=== PATIENT | male | born 1970 | race African-American/Black ===

== ENCOUNTER 2018-09-09 07:46 | Observation (INO) ==
[2018-09-09] MEDS ORDERED: ASPIRIN PO ONE (08:16)
[2018-09-09] MEDS ORDERED: NITROGLYCERIN TOP ONE (08:17)
[2018-09-09] MEDS ORDERED: MORPHINE IV ONE ×2 (08:17→09:58)
[2018-09-09] MEDS ORDERED: ZOFRAN IV ONE ×2 (08:17→09:59)
--- NOTE | 2018-09-09 08:23 | PROVIDER DOCUMENTATION ---
HPI-Chest Pain - General Chief Complaint: Chest Pain Stated Complaint: CP,EDEMA Time Seen by Provider: 09/09/18 08:08 Source: patient, family () Allergies/Adverse Reactions: Patient Allergies Allergy/AdvReac Type Severity Reaction Status Date / Time No Known Allergies Allergy Verified 07/29/18 07:45 Home Medications: Home Medication List Medication Instructions Recorded Confirmed Last Taken Type Metoprolol [Lopressor] 25 mg PO DAILY 11/30/16 09/09/18 05/08/18 History Omeprazole 40 mg PO DAILY 12/13/17 09/09/18 05/08/18 History Atorvastatin Calcium [Lipitor] 40 mg PO DAILY #90 tab 01/03/18 09/09/18 05/08/18 Rx Furosemide [Lasix] 20 mg PO DAILY 05/02/18 09/09/18 05/08/18 History Amlodipine [Norvasc] 10 mg PO DAILY #90 tab 05/03/18 09/09/18 05/08/18 Rx Losartan [Cozaar] 50 mg PO BID #60 tab 05/03/18 09/09/18 05/09/18 06:00 Rx Ciprofloxacin HCl [Cipro] 500 mg PO BID #10 tab 05/10/18 09/09/18 Unknown Rx Ondansetron HCl [Zofran] 4 mg PO Q4H PRN PRN #20 tab 05/10/18 09/09/18 Unknown Rx - History of Present Illness-CP Nature of Presenting Problem: Patient brought by with complaint of CP, midsternal, radiating to left scapular area with SOB and diaphoresis. CP began right after having a cup of coffee this morning. IT has been intermittent and rated as moderate to severe. States felt like "achy" type of pain. Never had this pain before. Has recently seen Drs. Nunes and Kat for proteinuria and recently started on a new medicine for his kidneys, can't remember the name, but states it starts with a "n". Sees Dr. Ochoa from cardiology. Has had two prior heart caths, that were "ok" and has a loop recorder implanted 3 years ago. Location: reports: substernal Chest Pain Radiation: reports: back (left scapula) Quality of Pain: reports: aching Severity in ED: moderate Onset/Duration: 1/2 hour ago Timing: still present, intermittent, changing over time Context/Activities at Onset: reports: light activity Modifying Factors: improves with: nothing (seems to help or make it worse) Associated Symptoms: reports: diaphoresis, shortness of breath. denies: nausea Nitro Today/Relief: no nitro taken today Aspirin Treatment Today: no aspirin today (takes blood thinners) Prior Chest Pain/Cardiac Workup: reports: non-cardiac, cardiac cath, stress test , thallium scan Similar Symptoms Previously?: No Recently Seen Here or By Another Healthcare Provider: Yes (Rubia) Review of Systems - Adult - REVIEW OF SYSTEMS - ADULT Constitutional: reports: see HPI, weight gain Eyes: reports: no symptoms reported Ears, Nose, Mouth & Throat: reports: no symptoms reported Cardiovascular: reports: see HPI, chest pain, edema, other (leg swelling). denies: irregular heart rate, orthopnea, palpitations Respiratory: reports: no symptoms reported Gastrointestinal: reports: no symptoms reported Genitourinary: reports: no symptoms reported Musculoskeletal: reports: no symptoms reported Integumentary: reports: no symptoms reported Neurological: reports: no symptoms reported Psychiatric: reports: no symptoms reported Endocrine: reports: no symptoms reported Hematologic/Lymphatic: reports: no symptoms reported Allergic/Immunologic: reports: no symptoms reported All Other Systems: Reviewed and Negative Past History - Adult - PAST MEDICAL HISTORY-ADULT Review of Records: reports: Old Records Reviewed, Nursing Assessment Review, Medications Reviewed, Social history reviewed & non-contributory. Major Childhood Illnesses: reports: denies history Cardiovascular: reports: HTN, hyperlipidemia, [place] (due to cocaine use . A recent angiogram was normal) Respiratory: reports: denies history Gastrointestinal: reports: GERD Obstetrical/Gynecological: reports: denies history Genitourinary: reports: kidney disease Musculoskeletal: reports: denies history Neurological: reports: denies history Endocrine/Immune: reports: Diabetes Other Conditions: reports: denies history - PRIOR SURGERIES/PROCEDURES Surgical/Procedure History: reports: reviewed, not pertinent, indwelling device (loop recorder) - IMMUNIZATION STATUS Childhood Immunizations: See Nurse Assessment Flu Vaccine: See Nurse Assessment - FAMILY HISTORY Family History: diabetes, CAD over 55 yo, CVA/TIA, HTN - SOCIAL HISTORY Smoking: quit less than 1 year Substance Use: none/never Alcohol Use Frequency: 3-4 times a week Number of drinks per typical drinking period:: 3-4 drinks Living Situation: family Physical Exam-General - PHYSICAL EXAM-ADULT Initial Vital Signs Reviewed: Yes (VSSAF, hypertensive) - CONSTITUTIONAL General Appearance: appears well, alert, no apparent distress - EYES Eyes: PERRL/EOMI, pink conjunctivae - HEAD, EARS, NOSE, MOUTH & THROAT HENMT: normocephalic/atraumatic, moist mucous membranes, normal ENT inspection - NECK Neck: non-tender, full range of motion, supple, normal inspection - RESPIRATORY Respiratory: chest non-tender, lungs clear, normal breath sounds, no pleuratic chest pain, no respiratory distress, no accessory muscle use - CARDIOVASCULAR Cardiovascular: normal peripheral pulses, regular rate, rhythm, no edema, no gallop, no JVD, no murmur - GASTROINTESTINAL (ABDOMEN) Abdominal Exam: normal bowel sounds, non tender, soft, no organomegaly, no pulsatile mass - LYMPHATIC Lymphatic: no adenopathy - MUSCULOSKELETAL Back Exam: normal inspection, no CVA tenderness, no vertebral tenderness Extremity: normal range of motion, non-tender, normal gait, normal capillary refill, pedal edema - SKIN Integumentary: normal color, normal turgor, warm/dry - NEUROLOGIC Neurologic: 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, grossly normal, no motor/sensory deficits - PSYCHIATRIC Psych/Mental Status: normal mood/affect, normal thought content, normal thought process, oriented x 3 - HEART Score HEART Score: History: Moderately Suspicious HEART Score: ECG: Normal HEART Score: Age: 45-65 Years HEART Score: Risk Factors for Atherosclerotic Disease: > or = 3 Risk Factors or History of Atherosclerotic Disease (MODERATE RISK) HEART Score: Troponin: < or = Normal Limit Total HEART Score:: 4 Progress - PLAN OF CARE/RESULTS Progress/Plan/Lab Results: Vital Signs - 8 hr 09/09/18 07:48 09/09/18 09:00 Temperature 98.0 F Pulse Rate 60 66 Respiratory Rate 20 17 Blood Pressure 158/98 172/95 O2 Sat by Pulse Oximetry 100 98 Laboratory Results - last 24 hr 09/09/18 09/09/18 09/09/18 08:02 08:02 08:02 WBC 12.11 H RBC 4.92 Hgb 13.4 L Hct 40.3 L MCV 81.9 MCH 27.2 MCHC 33.3 RDW Std Deviation 15.4 H Plt Count 167 MPV 12.8 H Immature Gran % (Auto) 0.3 Neut % (Auto) 48.0 Lymph % (Auto) 38.4 Sac % (Auto) 10.9 H Eos % (Auto) 2.2 Baso % (Auto) 0.2 Immature Gran # (Auto) 0.04 Neut # (Auto) 5.81 Lymph # (Auto) 4.65 H Sac # (Auto) 1.32 H Eos # (Auto) 0.27 Baso # (Auto) 0.02 PT PTT (Actin FS) Sodium 139 Potassium 4.3 Chloride 109 H Carbon Dioxide 24 L Anion Gap 6 BUN 18 Creatinine 1.3 H Estimated GFR/1.73 m2 > 60 BUN/Creatinine Ratio 14 Glucose 100 Calculated Osmolality 280 Calcium 7.6 L Phosphorus 3.3 Magnesium 1.9 Total Bilirubin 0.19 L AST 13 ALT 13 Alkaline Phosphatase 54 Creatine Kinase 211 H Creatine Kinase Index 1.6 CK-MB (CK-2) 3.35 Troponin T Kkr-[id number]-[id number] Pept 219 H Total Protein 3.9 L Albumin 1.8 L Globulin 2.1 Albumin/Globulin Ratio 0.9 Urine Source Urine Color Urine Turbidity Urine pH Ur Specific [place] Urine Protein Ur Glucose (Stick) Ur Ketones (Stick) Urine Blood Urine Nitrite Urine Bilirubin Urobilinogen Dipstick Urine Leukocytes Urine WBC (Auto) Urine RBC (Auto) U Epithel Cells (Auto) Urine Bacteria (Auto) 09/09/18 09/09/18 09/09/18 08:02 08:02 09:06 WBC RBC Hgb Hct MCV MCH MCHC RDW Std Deviation Plt Count MPV Immature Gran % (Auto) Neut % (Auto) Lymph % (Auto) Sac % (Auto) Eos % (Auto) Baso % (Auto) Immature Gran # (Auto) Neut # (Auto) Lymph # (Auto) Sac # (Auto) Eos # (Auto) Baso # (Auto) PT 11.3 PTT (Actin FS) 21.4 L Sodium Potassium Chloride Carbon Dioxide Anion Gap BUN Creatinine Estimated GFR/1.73 m2 BUN/Creatinine Ratio Glucose Calculated Osmolality Calcium Phosphorus Magnesium Total Bilirubin AST ALT Alkaline Phosphatase Creatine Kinase Creatine Kinase Index CK-MB (CK-2) Troponin T < 0.010 Mrf-T-Wggaurqjnjg Pept Total Protein Albumin Globulin Albumin/Globulin Ratio Urine Source CLEAN CATCH Urine Color YELLOW Urine Turbidity CLEAR Urine pH 6.5 Ur Specific [place] 1.014 Urine Protein 600 A Ur Glucose (Stick) NEGATIVE Ur Ketones (Stick) NEGATIVE Urine Blood MODERATE A Urine Nitrite NEGATIVE Urine Bilirubin NEGATIVE Urobilinogen Dipstick NORMAL Urine Leukocytes NEGATIVE Urine WBC (Auto) <10 Urine RBC (Auto) 20-40 A U Epithel Cells (Auto) <10 Urine Bacteria (Auto) NEGATIVE Orders Category Date Time Status Cardiac Monitoring DIRECTED Care 09/09/18 08:16 Active Oxygen Therapy- ED Nursing DIRECTED Care 09/09/18 08:16 Active Saline Loc NOW Care 09/09/18 08:16 Active CHEST-2 VIEWS [RAD] Stat Exams 09/09/18 08:16 Completed CBC WITH ELECTRONIC DIFF [HEME] Stat Lab 09/09/18 08:02 Completed CK PROFILE [SP CHEM] Stat Lab 09/09/18 08:02 Completed COMPREHENSIVE METABOLIC PANEL [CHEM] Stat Lab 09/09/18 08:02 Completed MAGNESIUM [CHEM] Stat Lab 09/09/18 08:02 Completed PRO B-NATRIURETIC PEPTIDE Stat Lab 09/09/18 08:02 Completed PROTIME WITH INR [COAG] Stat Lab 09/09/18 08:02 Results PTT [COAG] Stat Lab 09/09/18 08:02 Results TROPONIN T Stat Lab 09/09/18 08:02 Completed URINALYSIS W/POSS RFLX CULT [URINALYSIS] Stat Lab 09/09/18 09:06 Completed phos [PHOSPHORUS] [CHEM] Stat Lab 09/09/18 08:02 Completed Aspirin Med 09/09/18 08:16 Discontinued 325 mg PO NOW ONE Morphine Med 09/09/18 08:17 Discontinued 2 mg IV NOW ONE Nitroglycerin Med 09/09/18 08:17 Discontinued 1 inch TOP NOW ONE Ondansetron [Zofran] Med 09/09/18 08:17 Discontinued 4 mg IV NOW ONE CP/SOB/Palp >45 yrs of Age Stat Oth 09/09/18 08:16 Ordered Result Diagrams: 09/09/18 08:02 09/09/18 08:02 - EKG 1 Time of EKG reading by physician:: 07:53 EKG Read and Signed by:: Lamont Guerrero EKG Interpretation (*Must complete 3 of following elements*): Normal Rate: 61 Rhythm: NSR [place]: normal QRS: normal OK Interval: normal ST Wave: normal - XRAY 1 XRAY Study: Chest Impression: Abnormal, See EMR Report ( EXAM: CHEST-2 VIEWS 09/09/2018 HISTORY: cp TECHNIQUE: PA and lateral chest COMMENT: There is slightly increased interstitial markings. The heart size and primary vascularity are within normal limits. The appearance of the chest has not changed significantly since 07/29/2018. Compared to 06/20/2018 there has been no significant change. IMPRESSION: Stable chest. Electronically signed by Desmond Baer 09/09/2018 8:49 AM 09/09/18 0849 Interpreting Physician: Desmond Baer MD Dictat ed Date/Time: 09/09/18 0848 cc: Lamont Guerrero MD; [place] Nunes MD) - CONSULTS/PCP/HOSPITALIST Notification #1 *Consult/PCP/Hospitalist*: Asher Time Discussed: 10:01 Consult Disposition: Admit Departure - Departure Date of Disposition Decision: 09/09/18 Time of Disposition Decision: 10:02 DIAGNOSIS: Chest pain of uncertain etiology, Malignant hypertension Disposition: ADMITTED INPATIENT 09 Certified Medical Emergency: Emergent Condition: Fair Referrals and Follow-Ups: [place] Nunes MD [Primary Care Provider] - - Critical Care Note This patient required my direct & personal management of CC.: No Attestation - Physician/ LINH Attestation Patient care was provided by Advanced Practice Provider:: No The physician spent face to face time with patient:: Yes Advanced Practice Provider documentation review:: Supervising physician onsite and consulted in the evaluation and care of this patient. The physician did have a face to face encounter with the patient.
[2018-09-09 08:50] LABS: BASO# 0.02 X1000 (0.0-0.2); BASO% 0.2 % (0.0-0.8); EOS# 0.27 X1000 (0.0-0.7); EOS% 2.2 % (0.0-10.0); HEMATOCRIT 40.3 % (42.0-52.0); HEMOGLOBIN 13.4 g/dL (14.0-18.0); IMM GRAN# 0.04 X1000 (0.0-0.04); IMM GRAN% 0.3 % (0.0-0.5); LYMPH# 4.65 X1000 (1.2-3.4); LYMPH% 38.4 % (20.5-51.1); MCH 27.2 PG (27-31); MCHC 33.3 g/dL (33-37); MCV 81.9 FL (81-99); MONO# 1.32 X1000 (0.11-0.59); MONO% 10.9 % (1.7-9.3); MPV 12.8 FL (7.4-10.4); NEUT# 5.81 X1000 (1.4-6.5); PLT 167 X1000 (130-400); RBC 4.92 XMIL (4.7-6.1); RDW 15.4 % (11.5-14.5); WBC 12.11 X1000 (4.8-10.8)
--- NOTE | 2018-09-09 08:51 | Diag Imaging Result Doc PS360 ---
EXAM: CHEST-2 VIEWS 09/09/2018 HISTORY: cp TECHNIQUE: PA and lateral chest COMMENT: There is slightly increased interstitial markings. The heart size and primary vascularity are within normal limits. The appearance of the chest has not changed significantly since 07/29/2018. Compared to 06/20/2018 there has been no significant change. IMPRESSION: Stable chest. Electronically signed by Desmond Baer 09/09/2018 8:49 AM
[2018-09-09 08:54] LABS: PROTIME 11.3 Seconds (11.0-16.0); PTT 21.4 Seconds (22.3-41.8)
[2018-09-09 09:13] LABS: AGAP 6; ALB/GLOB RATIO 0.9; ALBUMIN 1.8 g/dL (3.5-5.0); ALKALINE PHOSPHATASE 54 U/L (32-122); BUN 18 mg/dL (8-22); CALCIUM 7.6 mg/dL (8.8-10.2); CHLORIDE 109 mmol/L (98-107); COSMO 280; CREATININE 1.3 mg/dL (0.7-1.2); ESTIMATED GFR > 60; GLUCOSE 100 mg/dL (70-104); GOT 13 U/L (10-34); GPT 13 U/L (10-44); MAGNESIUM 1.9 mg/dL (1.5-2.7); PHOSPHORUS 3.3 mg/dL (2.7-4.5); POTASSIUM 4.3 mmol/L (3.5-5.1); SODIUM 139 mmol/L (136-145); TCO2 24 mmol/L (25-35); TOTAL BILIRUBIN 0.19 mg/dL (0.20-1.00); TOTAL PROTEIN 3.9 g/dL (6.3-8.3)
[2018-09-09 09:17] LABS: URINE SOURCE CLEAN CATCH
[2018-09-09 09:25] LABS: CK PROFILE 211 U/L (24-204)
[2018-09-09 09:36] LABS: BILIRUBIN URINE NEGATIVE (NEGATIVE); BLOOD URINE MODERATE (NEGATIVE); COLOR YELLOW; GLUCOSE URINE NEGATIVE (NEGATIVE); KETONE URINE NEGATIVE (NEGATIVE); LEUKOCYTES URINE NEGATIVE (NEGATIVE); NITRITE URINE NEGATIVE (NEGATIVE); PH URINE 6.5; PROTEIN URINE 600 mg/dL (NEGATIVE); SP GRAVITY URINE 1.014; TURBIDITY URINE CLEAR (CLEAR); UROBILINOGEN URINE NORMAL (NORMAL)
[2018-09-09 09:37] LABS: UR EPITHELIAL CELLS <10 /HPF (<10); URINE BACTERIA NEGATIVE /HPF; URINE RBC 20-40 /HPF (<10); URINE WBC <10 /HPF (<10)
[2018-09-09 09:54] LABS: CK INDEX 1.6 (0.0-2.5); CK-MB 3.35 ng/mL (0.0-5.0)
[2018-09-09] MEDS ORDERED: APRESOLINE IV ONE (09:58)
[2018-09-09 10:01] LABS: INR 0.76
[2018-09-09] MEDS ORDERED: ZOFRAN PO PRN (10:04)
[2018-09-09] MEDS ORDERED: MORPHINE IV PRN (10:04)
[2018-09-09] MEDS ORDERED: TYLENOL PO PRN (10:04)
[2018-09-09] MEDS ORDERED: NORVASC PO SCH (11:00)
--- NOTE | 2018-09-09 11:32 | HISTORY AND PHYSICAL ---
CHIEF COMPLAINT: Chest pain. PRESENT ILLNESS: This is one of several [facility] admissions for this 47-year-old black man who developed some substernal chest pain this morning similar to the time when he had a heart attack. He presented to the emergency room. Initial EKG and enzymes were normal. Because of his history and nature of pain, he is admitted to rule out cardiac etiology of the pain. He has had increasing ankle edema despite 20 mg p.o. Lasix daily. He saw Dr. Holbrook 2 weeks ago and is followed by him on a regular basis for nephrotic syndrome with proteinuria. He quit smoking about 9 months ago. There is history of diabetes, but he takes no medications. He has had a long history of hypertension. He has had no nausea or vomiting. There is no pain on inspiration. There has been no cough or fever. PAST MEDICAL HISTORY: No recent hospitalizations. CURRENT MEDICATIONS: Lasix 20 mg daily, amlodipine 10 mg daily, Lipitor 20 mg at bedtime, losartan 50 mg b.i.d., metoprolol 25 mg daily, omeprazole 40 mg daily. ALLERGIES: None known. REVIEW OF SYSTEMS: Significant for coronary artery disease. Also significant for nephrotic syndrome with proteinuria. He states that he has diabetes and has not taken recent medicines. Apparently a hemoglobin A1c was done by Dr. Nunes recently. The patient says that his lab work has been good recently. There has been mild weight gain with the ankle edema. SOCIAL HISTORY: and lives with his . He stopped smoking 9 months ago as above. There is no history of significant alcohol usage. PHYSICAL EXAMINATION: VITAL SIGNS: Temperature 98.5 degrees, heart rate 84, respirations 16, blood pressure 157/80. GENERAL: Patient is a well-developed, well-nourished white man in no apparent distress. HEENT: Pupils equal, round, and reactive to light. Tympanic membranes without inflammation. Pharynx benign with no erythema or exudate. NECK: Supple with no mass or lymphadenopathy. HEART: Regular in rate and rhythm with no murmur, rub, or gallop. LUNGS: Clear with no rales or rhonchi. There is no chest wall tenderness to palpation. ABDOMEN: Soft with no mass or organomegaly. There is no epigastric tenderness. Ankles 2 to 3+ edema bilaterally. RECTAL AND GENITALIA: Deferred. IMPRESSION: 1. Chest pain, rule out cardiac origin. 2. History of coronary artery disease. 3. History of hypercholesterolemia. 4. History of diabetes, diet controlled. 5. Nephrotic syndrome with ankle edema. BUN and creatinine were 18 and 1.3, respectively. PLAN: Admit for evaluation, serial enzymes, Cardiology consult with Dr. Ochoa. cc: MD Fei Lang MD
[2018-09-09] MEDS: LASIX IV SCH (14:01)
[2018-09-09 16:50] LABS: CK INDEX 3.6 (0.0-2.5); CK-MB 8.84 ng/mL (0.0-5.0)
--- NOTE | 2018-09-09 19:34 | CARDIOLOGY CONSULTATION ---
DATE: 09/09/2018 CHIEF COMPLAINT: Chest pain, swelling. HISTORY: Mr. Gan is a 47-year-old black gentleman who is a patient of myself. He presented to the emergency room today because this morning as he was sipping on his coffee about 7, 7:30 in the morning he started choking, coughing, and then he developed substernal chest discomfort. This went on for several moments and he really got worried and scared. Because for several days he had noted increasing swelling of both of his lower extremities, he felt that it would be best to come to the emergency room seeking evaluation. In the ER they did a chest x-ray that shows stable findings. A 12 lead EKG is normal. His blood work included a troponin level that was checked several times. The 1st 2 were negative at 8 o'clock and at 12:20. Then at 3:55 p.m. there is a change. There is a 0.03 ng/mL value. His CPK also has changed initially to 11 then dropped to 175 and then it roger up to 244. The patient at this time is not having any more pain. I am seeing him at 6 p.m. The pain had subsided about 3 or 4 hours ago. It was very minimal after they gave him aspirin and nitroglycerin paste. PAST MEDICAL HISTORY: Is really extensive. Several years ago apparently he suffered an acute coronary syndrome. We did evaluate him back in December 2015 by means of a stress test. At that time, the patient had questionable inducible ischemia of the basal to mid anterior wall of the left ventricle on top of either scar or attenuation. However, the patient demonstrated 3 distinct runs of nonsustained polymorphic ventricular tachycardia during the 2nd stage of Holger protocol at a workload of 5.6 METS, which is very low. Because of that, we went ahead and did a heart catheterization on the following day that interestingly showed the following. #1 The left main was normal. The LAD was normal. #2. The diagonal branch had a 30% stenosis of the superolateral branch. The circumflex, which was codominant, was normal. The right coronary artery that was also codominant appeared to be normal. His ejection fraction was 60% and he indeed had a focal area of akinesis involving the mid inferolateral wall consistent with a prior myocardial infarction. Decision was made to treat him medically. He did have hyperlipidemia. He did have hypertension. He has acid reflux. Lately, the patient developed significant swelling of the legs and they did a urinary collection that showed that he had massive amounts of proteinuria up to [address] Holbrook requested a kidney biopsy on 05/09/2018 that reveals evidence of membranous nephropathy. According to the patient, he has just been started on what appears to be prednisone at higher doses and his Lipitor was discontinued because there was some sort of potential interaction with his other medications. We had previously implanted a loop recorder monitor on him which was just recently interrogated about couple of days ago and it showed no evidence of any arrhythmia. He has been found to have significant occlusive disease of the femoral vessels with a CT scan of aorta with peripheral runoff that was done on 12/31/2017 that shows occlusion of the distal right femoral artery with reconstitution thereafter and a subtotal occlusion of the midthigh level of the superficial femoral artery on the left side. The patient used to be a heavy smoker and he has quit smoking about 12 months ago. SOCIAL HISTORY: He works at a warehouse. He is . He has 1 child. HOME MEDICATIONS: At the time of this admission included amlodipine 10 mg daily, atorvastatin 40 daily, ciprofloxacin 500 twice a day, furosemide 20 mg daily, losartan 50 twice a day, metoprolol 25 daily, omeprazole 40 daily, and Zofran 4 mg daily. REVIEW OF SYSTEMS: Basically, the predominant complaint at this time is the progressive swelling of both of his lower extremities and even his lower back. Additional history, he has had back surgery years ago for sciatica pain. PHYSICAL EXAM: Today blood pressure 177/67, temperature 98.7 degrees, pulse 80, respirations 18. He is awake, in no distress.HEENT: Unremarkable. Neck: Veins are not distended. Chest: Fairly clear to auscultation and percussion. Heart: Heart sounds are regular rhythmic. I do not hear a gallop or murmur. Abdomen: Distended and I suspect that he may have some ascites. Extremities: Show significant edema of both lower extremities all the way up basically to the pelvic area. He has 3+ to 4+ edema. Neurological: He is awake, alert, oriented x3. Cranial nerves normal. Speech is clear. He is fully alert and conversant, follows all commands. Moves 4 extremities. Strength is preserved. He has no deficit. ADDITIONAL BLOOD WORK: His sodium 139, potassium 4.3, BUN 18, creatinine 1.3. Hemoglobin is 13.4, platelet count 167,000, white cell count 12,110. IMPRESSION: 1. Patient presented to the emergency room with a relatively short lasting episode of a very atypical chest pain. Given his normal EKG, I really doubt that this is anything related to acute coronary syndrome, however, there has been a rise in his troponin level which is concerning. 2. Patient with membranous nephropathy and severe nephrotic syndrome with very severe hyperlipidemia. His lipid panel according to my records from not long ago indicated a total cholesterol of 279 mg/dL with an LDL of 207, HDL of 30. I had instructed him to double up on Lipitor. However, he was given instructions by Nephrology about discontinuation of this drug due to potential interaction with other medications. This is going to be problematic because he may develop progressive coronary atherosclerosis. 3. Reported history of severe peripheral obstructive arterial disease. 4. Hypertension. 5. history of inferolateral NH, focal, with non obstructive coronary disease in the past. RECOMMENDATION: At this time, we will obtain an echocardiogram to reassess cardiac function. We will continue to trend his cardiac enzymes. Again, I doubt very much that we are dealing with coronary disease since his coronary tree was relatively spared on the heart catheterization that we performed 3 years ago. I may want to do an echocardiogram 1st, continue to trend the enzymes and then make a decision as to whether or not we need to pursue stress testing or even left heart catheterization. We will really need to sit down with Dr. Holbrook to discuss what is going to happen to his severe proteinuria. His albumin level right now is very low is 1.8 g percent which will evidently lead to anasarca edema. I am going to put him on Carafate to cover for the possibility of gastroesophagitis related to steroid usage which could also explain the rise in troponin, especially if the gastroesophagitis is severe. Further advice will be forthcoming. Thank you again for the opportunity to participate in his evaluation. cc: MD Fei Whitmore MD MTDD
[2018-09-09] MEDS: COZAAR PO SCH (21:00)
[2018-09-09] MEDS: CARAFATE LIQUID PO SCH (21:02)
[2018-09-09] MEDS ORDERED: APRESOLINE PO ONE ×2 (21:10→21:12)
[2018-09-09] MEDS: ISORDIL PO ONE (22:38)
[2018-09-10] MEDS: LASIX IV SCH ×2 (01:30→14:49)
[2018-09-10] MEDS: CARAFATE LIQUID PO SCH ×4 (01:30→21:49)
[2018-09-10] MEDS: PRILOSEC PO SCH (06:29)
--- NOTE | 2018-09-10 08:28 | EKG Report ---
Test Performed on : 09/09/2018 07:48:24 AM Test Reason : ED. NO EKG ORDER FOR MUSE Blood Pressure : / mmHG Vent. Rate : 061 BPM Atrial Rate : 061 BPM P-R Int : 160 ms QRS Dur : 078 ms QT Int : 356 ms P-R-T Axes : 059 041 056 degrees QTc Int : 358 ms Normal sinus rhythm. Normal ECG When compared with ECG of 20-JUN-2018 17:40, No significant change was found Unconfirmed Result
[2018-09-10] MEDS: COZAAR PO SCH ×2 (08:58→21:49)
[2018-09-10] MEDS: APRESOLINE PO SCH ×3 (08:58→21:49)
[2018-09-10] MEDS: KLOR-CON PO SCH (08:59)
[2018-09-10] MEDS: ISORDIL PO SCH ×3 (08:59→21:49)
[2018-09-10] MEDS: LIPITOR PO SCH ×2 (08:59→09:08)
[2018-09-10] MEDS ORDERED: ISORDIL PO SCH (09:00)
[2018-09-10] MEDS: LOPRESSOR PO SCH (09:00)
[2018-09-10] MEDS: NORVASC PO SCH (09:00)
[2018-09-10] MEDS ORDERED: LIPITOR PO SCH (09:00)
[2018-09-10] MEDS ORDERED: APRESOLINE PO SCH (09:00)
[2018-09-10] MEDS: ALBUMIN 25% IV SCH (09:16)
[2018-09-10 09:34] LABS: AGAP 5; ALB/GLOB RATIO 0.6; ALBUMIN 1.6 g/dL (3.5-5.0); ALKALINE PHOSPHATASE 54 U/L (32-122); BUN 15 mg/dL (8-22); CALCIUM 7.2 mg/dL (8.8-10.2); CHLORIDE 107 mmol/L (98-107); COSMO 279; CREATININE 1.3 mg/dL (0.7-1.2); ESTIMATED GFR > 60; GLUCOSE 144 mg/dL (70-104); GOT 14 U/L (10-34); GPT 10 U/L (10-44); SODIUM 138 mmol/L (136-145); TCO2 26 mmol/L (25-35); TOTAL BILIRUBIN < 0.15 mg/dL (0.20-1.00); TOTAL PROTEIN 4.2 g/dL (6.3-8.3)
[2018-09-10] MEDS: PREDNISONE PO SCH (12:22)
[2018-09-10] MEDS: NEORAL PO SCH ×2 (12:23→22:03)
[2018-09-10 14:02] LABS: UR CREAT RANDOM 89.5 mg/dL (14-26); UR PROT RANDOM > 600.0 mg/dL
--- NOTE | 2018-09-10 14:44 | NEPHROLOGY CONSULTATION ---
DATE: 09/10/2018 REASON FOR ADMISSION: Chest pain with increased work of breathing. REASON FOR CONSULT: Membranous nephropathy with nephrotic syndrome, swelling. CONSULTING PHYSICIAN: Dr. Ochoa. HISTORY OF PRESENT ILLNESS: Mr. Gan is a 47-year-old, male who we had recently met in May of this year secondary to having patient with increased work of breathing, severe swelling. He had a renal biopsy. He was found to have membranous nephropathy. He was followed up in our office and was subsequently, at that time, started on prednisone 50 mg daily and Neoral 150 mg b.i.d. He was to continue his Lasix 20 mg b.i.d. as indicated for increased swelling. The patient had been seen in our office several weeks ago for these changes. States that he has been doing well. He has not been watching his p.o. intake nor has he been decreasing his sodium consumption. He stated that he had developed substernal chest pain yesterday a.m., felt similar to his previous time when he had a heart attack. Presented to [facility]. His initial EKG and cardiac enzymes were normal. He was subsequently admitted for further monitoring and further workup. He has 2+ edema to his lower extremities. He feels that this is worsened when he is at work. He is a stenotype operator in a warehouse. He denied any fever or chills. No nausea or vomiting. He has no fever, no cough. No nausea, vomiting, or diarrhea. PAST MEDICAL HISTORY: Patient was recently admitted in April of this year. His past medical history is diabetes mellitus, controlled, hypertension, hyperlipidemia, swelling. He has proteinuria. SOCIAL HISTORY: He is . He lives with his spouse. 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 He quit smoking approximately 12 months ago. No alcohol. No illicit drug use. FAMILY HISTORY: Negative for kidney disease. ALLERGIES: Listed as no known drug allergies. HOME MEDICATIONS: Lasix 20 mg b.i.d., amlodipine 10 mg daily, Lipitor 20 at bedtime, losartan 50 mg b.i.d., metoprolol 25 mg daily, omeprazole 40 mg daily. He is also on prednisone 50 mg daily and Neoral 150 mg b.i.d. He had been taken off his Lipitor several weeks ago in our office secondary to contraindications to be taken with Neoral. REVIEW OF SYSTEMS: Times 10 with pertinent positives listed above in the HPI. VITAL SIGNS: The patient's most recent vital signs, his last temperature 98.6 degrees, blood pressure 159/88, heart rate 61, respirations 20. He is on room air. Last recorded saturation is 97%. He has had 700 in. Patient states that he has been voiding, though he has had 0 recorded. LABORATORY DATA: The patient's most recent labs, sodium 138, potassium 4, chloride is 107, CO2 of 26, BUN 15, creatinine 1.3, glucose 144, the patient has an anion gap of 5, calcium is 7.2, albumin is 1.6. His white count is 12.11, hemoglobin 13.4, hematocrit 40.3, with a platelet count of 167,000. On admission, his prothrombin time was 11.3, INR 0.76, PTT of 21.4. The patient had a chest x-ray on admission indicating stable chest. No significant pulmonary infiltrates or pleural effusions. EKG was completed this a.m. Cardiology is on board. PHYSICAL EXAMINATION: General: This is a 47-year-old, male resting quietly in bed. He appears chronically ill. No acute distress. Skin is warm and dry. HEENT: Normocephalic, atraumatic. Conjunctivae are pale. He has YOCASTA. Mucous membranes are dry. Neck: Supple. Trachea midline. Unable to determine JVD. Cardiovascular: Regular rate and rhythm. There is no murmur or gallop. Abdomen: Slightly distended. Soft, nontender. Extremities: Have 3 to 4+ lower extremity edema up into the mid hip, lower back, abdominal area. Genitourinary: Not inspected. Patient states he has been voiding. We will request strict I and O. Integumentary: No rashes or lesions evident. Neurological: The patient is awake and alert x3. ASSESSMENT AND PLAN: 1. Membranous nephropathy with severe nephrotic syndrome. The patient has preserved renal function at this time with a creatinine of 1.3 and BUN of 15. We will request that they keep intakes and outputs. We will continue his Neoral 150 mg twice a day and his prednisone 50 mg daily. He is to continue on his Lasix 20 mg daily that he has been taking, possibly twice a day. Discussed salt restriction. 2. Hyperlipidemia associated with his membranous nephropathy. Due to the interaction between his Neoral and Lipitor, we will start him on Pravachol low dose 10 mg with plans to slowly increase this to therapeutic dosing. If we are unable to do this, we will possibly change the patient from Neoral to tacrolimus in the near future. 3. Electrolytes and acid-base balance. These are acceptable. 4. Anemia. This is actually in target. 5. Chest pain. This is being followed by cardiology. I would like to thank you for allowing us to follow with this patient. Dictated by MICHAEL Holly for Dominick Holbrook MD Face to face encounter, data reviewed, discussed with Fredo Rees on 09/10/18. I agree with the above assessment and plan of care. cc: MICHAEL Holly MD Jagan Reddy, MD [facility]
--- NOTE | 2018-09-10 16:07 | ECHO REPORT ---
ORDER DATE: 09/10/2018 INTERPRETING PHYSICIAN: Leonardo Mathias MD ECHOCARDIOGRAPHIC MEASUREMENTS: 1. Interventricular septum 1.1 cm. 2. Left ventricular posterior wall 1.1 cm. 3. Diastolic diameter 5.6 cm. 4. Left atrium 4 cm. 5. Aorta 3.4. SUMMARY OF THE 2-DIMENSIONAL IMAGIN. The aortic valve leaflets are trileaflet. 2. Pulmonic valve was normal. 3. There is trace pulmonary regurgitation. 4. Mitral valve was normal. 5. Tricuspid valve was normal. 6. There is mild mitral regurgitation. 7. Mild tricuspid regurgitation. 8. Peak velocity across the tricuspid valve was 2.8 m/sec. 9. Pulmonary artery systolic pressure of 43 mmHg. 10. There is left atrial enlargement. 11. Peak velocity across the aortic valve less than 2 m/sec. 12. By Doppler studies, there is no aortic stenosis or regurgitation. 13. Normal left ventricular cavity size. 14. Estimated ejection fraction of 60% to 65%. 15. There is no pericardial effusion or obvious intracardiac mass or thrombus seen. cc: MD Navneet Polk MD Jagan Reddy, MD
--- NOTE | 2018-09-10 17:18 | CARDIOLOGY PROGRESS NOTE ---
DATE: 09/10/2018 CHIEF COMPLAINT: Chest discomfort. SUBJECTIVE: Mr. Gan is not having any more chest discomfort. Interestingly, his CPK is coming down; his troponin is slightly elevated at 0.209. EKG shows no abnormalities. A 2D echocardiogram done today is normal. OBJECTIVE: Blood pressure 152/86, temperature 98.6 degrees, pulse 66, respirations 20. General: He is awake, alert and oriented, in no distress. HEENT: Unremarkable. Chest: Diminished breath sounds at the bases. Heart: Heart sounds heard. Regular rate and rhythm. No gallop or rubs. Abdomen: Distended. Extremities: Show edema. Neurologic: Follows commands. Moves all 4 extremities. DIAGNOSTIC DATA: Blood work shows albumin of 1.6. ProBNP was 219 yesterday. Glucose 144, BUN 15, creatinine 1.3. Protein in urine is greater than 600 mg/dL. This is random. Total cholesterol was 411, LDL 340, triglycerides 380, HDL 34. IMPRESSION: 1. Patient with atypical chest discomfort with elevation of troponin. Echocardiogram and EKG show no acute changes. Prior cardiac catheterization 2-1/2 years ago showed no critical stenosis anywhere. 2. Nephrotic syndrome due to membranous nephropathy. 3. Significant hyperlipidemia. RECOMMENDATIONS: 1. At this time, I would suggest to this patient to initiate atorvastatin 80 mg daily, and continue close followup with Dr. Holbrook and with his primary care physician. 2. His hyperlipidemia really needs to be controlled or otherwise, he is going to be at high risk of developing atherosclerotic complications. 3. According to Dr. Holbrook, he put him on cyclosporin and prednisone, which have been resumed. He is on cyclosporin 150 mg twice a day, and prednisone 15 mg daily. 4. It is possible that due to the prednisone, he may have developed significant gastroesophagitis. 5. At any rate, the patient will follow up with them and we will arrange for a followup with my office. cc: MD Fei Whitmore MD MTDD
[2018-09-10] MEDS ORDERED: SODIUM CHLORIDE 0.9% INJ SCH (21:30)
[2018-09-10] MEDS: PEPCID IV SCH (22:02)
--- NOTE | 2018-09-10 22:02 | PROGRESS NOTE ---
DATE: 09/10/2018 SUBJECTIVE: This is a 47-year-old male, with a known history of membranous nephropathy, recently seen by Dr. Holbrook, started on prednisone and Neoral 150 mg p.o. b.i.d. and Lasix. Since then, he has worsening of edema, hypoalbuminemia, hyperlipidemia. Came in with chest pain and swelling. PAST MEDICAL HISTORY: Reviewed. PAST SURGICAL HISTORY: Reviewed. MEDICINES: Reviewed. ALLERGIES: Not known. PHYSICAL EXAMINATION: Vital Signs: Temperature is 98.8 degrees, pulse is 60, blood pressure is 160/81. HEENT: Within normal limits. Neck: Supple. No lymphadenopathy. Chest: Bilateral air entry. Heart: Sounds are regular. Abdomen: Belly is soft, nontender. Good bowel sounds. Extremities: 2+ pedal edema. No cyanosis. No signs of gangrene. INVESTIGATIONS: Reviewed. SMA7: Sodium 138, potassium 4, creatinine 1.3, glucose 144, calcium 7.2. CK is coming down. Troponin is positive. Triglycerides 380, cholesterol 411, random protein more than 600. ASSESSMENT AND PLAN: 1. Membranous nephropathy with severe nephrotic syndrome. Creatinine 1.3. The patient has been on Neoral 150 twice a day along with prednisone and Lasix. 2. Hypoalbuminemia. We will give albumin followed by Lasix. 3. Hyperlipidemia, due to membrane nephropathy and increasing the Pravachol to control the blood pressure with amlodipine and hydralazine and isosorbide, and then losartan 50 p.o. b.i.d. and metoprolol 25 daily. 4. Positive CK troponin with chest pain, as per Dr. Ochoa. 5. Patient is high risk for deep venous thrombosis. [place] deep venous thrombosis prophylaxis. 6. Pepcid. I appreciate the consultants and will follow up. LEVEL OF DOCUMENTATION: 35 minutes. cc: Fei Nunes MD
[2018-09-10] MEDS: LOVENOX SUBQ SCH (22:03)
[2018-09-10] MEDS: PRAVACHOL PO SCH (22:04)
[2018-09-11] MEDS: LASIX IV SCH ×2 (02:45→14:50)
[2018-09-11] MEDS: CARAFATE LIQUID PO SCH ×4 (02:45→22:21)
[2018-09-11] MEDS: PRILOSEC PO SCH (06:24)
[2018-09-11 08:00] LABS: AGAP 7; ALB/GLOB RATIO 0.9; ALBUMIN 1.7 g/dL (3.5-5.0); ALKALINE PHOSPHATASE 47 U/L (32-122); BUN 17 mg/dL (8-22); CALCIUM 7.6 mg/dL (8.8-10.2); CHLORIDE 108 mmol/L (98-107); COSMO 281; CREATININE 1.3 mg/dL (0.7-1.2); ESTIMATED GFR > 60; GLUCOSE 101 mg/dL (70-104); GOT 12 U/L (10-34); GPT 8 U/L (10-44); POTASSIUM 4.3 mmol/L (3.5-5.1); SODIUM 140 mmol/L (136-145); TCO2 25 mmol/L (25-35); TOTAL BILIRUBIN < 0.15 mg/dL (0.20-1.00); TOTAL PROTEIN 3.6 g/dL (6.3-8.3)
[2018-09-11] MEDS: NORVASC PO SCH (09:21)
[2018-09-11] MEDS: ISORDIL PO SCH ×3 (09:22→22:21)
[2018-09-11] MEDS: COZAAR PO SCH ×2 (09:22→22:21)
[2018-09-11] MEDS: APRESOLINE PO SCH ×3 (09:22→22:21)
[2018-09-11] MEDS: LOPRESSOR PO SCH (09:22)
[2018-09-11] MEDS: KLOR-CON PO SCH (09:22)
[2018-09-11] MEDS: PREDNISONE PO SCH (09:22)
[2018-09-11] MEDS: NEORAL PO SCH ×2 (09:23→22:19)
[2018-09-11] MEDS: PEPCID IV SCH (09:23)
[2018-09-11] MEDS: ALBUMIN 25% IV SCH (09:31)
--- NOTE | 2018-09-11 19:06 | NEPHROLOGY PROGRESS NOTE ---
DATE: 09/11/2018 SUBJECTIVE: Mr. Gan is resting quietly in bed. He states that he is feeling just a little bit better. He is concerned over starting on Pravachol last night, but otherwise denies chest pain or increased work of breathing. OBJECTIVE: His most recent vital signs is temperature 98.5 degrees, blood pressure 151/86, heart rate 55, respirations 18. He is on room air. Last recorded saturation 93%. He has had 100 in. He has had 2700 out to void. LABORATORY DATA: Sodium is 140, potassium is 4.3, his chlorides are 105, his CO2 is 108. His CO2 is 25, BUN is 17, creatinine is 1.3. He has a glucose of 101. His anion gap is 7. He has a calcium of 7.6, albumin is 1.7. Previous hemoglobin 13.4. PHYSICAL EXAMINATION: General: This is a 47-year-old male. He is resting quietly in bed. He is in no acute distress. Skin: Warm and dry. HEENT: Normocephalic, atraumatic. Conjunctiva is pale. He has YOCASTA. Mucous membranes are dry. Neck: Supple. Trachea midline. No JVD. Cardiovascular: Regular rate and rhythm. He is without murmur or gallop. Lungs: Clear to auscultation bilaterally. Equal excursion on room air. Abdomen: Soft. Positive bowel sounds. Genitourinary: Not inspected. The patient has been voiding adequate amount. Extremities: Continues with 3+ edema up into the mid hip, lower back region. Neurological: Alert and oriented x3. ASSESSMENT AND PLAN: 1. Membranous nephropathy with severe nephrotic syndrome. Patient has preserved renal function. BUN and creatinine have remained stable. He continues on Neoral 150 mg b.i.d. and prednisone 50 mg daily. He continues on Lasix 20 along with omeprazole. Again, we have discussed salt restriction and fluid volume restriction. 2. Hyperlipidemia associated with his membranous nephropathy. We have started patient on Pravachol 10 mg p.o. dose. We have instructed the patient that his hyperlipidemia is secondary to his nephrotic syndrome, that we need to continue to address his membranous nephropathy and will gradually hopefully increase his Pravachol to therapeutic dosing. 3. Electrolytes, acid-base balance. These are acceptable. 4. Anemia. This is in target. 5. Chest pain followed by Cardiology. This is resolved during his hospital stay. I would like to thank you for allowing us to follow with this patient. Dictated by MICHAEL Holly for Dominick Holbrook MD Face to face encounter, data reviewed, discussed with Fredo Rees on 09/11/18. I agree with the above assessment and plan of care. cc: MICHAEL Holly MD Jagan Reddy, MD [facility]
[2018-09-11] MEDS ORDERED: PRAVACHOL PO SCH ×2 (21:00)
--- NOTE | 2018-09-11 21:09 | PROGRESS NOTE ---
DATE: 09/11/2018 SUBJECTIVE: The patient is doing better. No chest pain, positive enzymes, and still edematous. REVIEW OF SYSTEMS: None reported. PHYSICAL EXAM: Vital signs: Temperature is 98.4, pulse is 58, blood pressure is 147/84, 97% on room air. He has excellent I's and O's. Negative -2.6. HEENT Exam: Nephrosis face. Chest: Clear. Heart: Sounds are regular. Abdomen: Belly is soft, nontender. Extremities: 1+ pedal edema noted. INVESTIGATIONS: CMP, sodium 140, potassium 4.3, chloride 108, BUN 17, creatinine 1.3, glucose 101, calcium 7.6, total albumin 1.7, triglycerides 380, cholesterol 411. ASSESSMENT AND PLAN: 1. Nephrosis due to membranous nephritis, idiopathic on high dose of prednisone and Neoral. 2. IV albumin followed by Lasix. 3. Hyperlipidemia. Increasing pravastatin 80 mg daily. 4. High risk for deep vein thrombosis on Lovenox. 5. Control the blood pressure. 6. Gastrointestinal prophylaxis with IV Pepcid and history of noncritical coronary artery disease. Positive enzyme as per Dr. Ochoa. Currently on Cozaar, metoprolol and continue baby aspirin and we will follow up. LEVEL OF DOCUMENTATION: [25] cc: Fei Nunes MD [facility]
[2018-09-11] MEDS: PRAVACHOL PO SCH (22:18)
[2018-09-12] MEDS: PEPCID IV SCH ×3 (01:50→22:28)
[2018-09-12] MEDS: CARAFATE LIQUID PO SCH ×4 (01:51→22:30)
[2018-09-12] MEDS: LASIX IV SCH ×2 (01:51→16:41)
[2018-09-12] MEDS: LOVENOX SUBQ SCH (01:56)
[2018-09-12] MEDS: PRILOSEC PO SCH (06:28)
[2018-09-12 07:15] LABS: AGAP 6; ALB/GLOB RATIO 0.9; ALBUMIN 1.8 g/dL (3.5-5.0); ALKALINE PHOSPHATASE 48 U/L (32-122); BUN 20 mg/dL (8-22); CALCIUM 7.5 mg/dL (8.8-10.2); CHLORIDE 106 mmol/L (98-107); COSMO 280; CREATININE 1.4 mg/dL (0.7-1.2); ESTIMATED GFR > 60; GLUCOSE 88 mg/dL (70-104); GOT 12 U/L (10-34); GPT 11 U/L (10-44); SODIUM 139 mmol/L (136-145); TCO2 27 mmol/L (25-35); TOTAL BILIRUBIN < 0.15 mg/dL (0.20-1.00); TOTAL PROTEIN 3.7 g/dL (6.3-8.3)
[2018-09-12] MEDS: LOPRESSOR PO SCH (10:23)
[2018-09-12] MEDS: ASPIRIN PO SCH (10:23)
[2018-09-12] MEDS: ALBUMIN 25% IV SCH (10:23)
[2018-09-12] MEDS: PREDNISONE PO SCH (10:23)
[2018-09-12] MEDS: KLOR-CON PO SCH (10:24)
[2018-09-12] MEDS: APRESOLINE PO SCH ×3 (10:24→22:27)
[2018-09-12] MEDS: COZAAR PO SCH ×2 (10:24→22:27)
[2018-09-12] MEDS: ISORDIL PO SCH ×3 (10:24→22:28)
[2018-09-12] MEDS: NORVASC PO SCH (10:24)
[2018-09-12] MEDS: NEORAL PO SCH ×2 (10:25→22:31)
--- NOTE | 2018-09-12 15:08 | NEPHROLOGY PROGRESS NOTE ---
DATE: 09/12/2018 Date Seen: 09/12/2018 Time Seen: 0710 SUBJECTIVE: Mr. Gan is resting quietly in bed, states that his swelling has improved. He has been up walking the halls. VITAL SIGNS: His most recent vital signs: Temperature 98.3 degrees, blood pressure 154/83, heart rate 53, respirations 17. He is on room air. Last recorded saturation 99%. He has had 2272 in, 2600 out to void. LABORATORY DATA: Sodium 139, potassium 4, chloride 106, CO2 27, BUN 20, creatinine 1.4, glucose 88. His anion gap is 6, calcium 7.5, albumin 1.8. Previous hemoglobin 13.4. PHYSICAL EXAMINATION: General: This is a 47-year-old male. He is resting quietly in bed. Skin: Warm and dry. HEENT: Normocephalic, atraumatic. Conjunctiva is pale pink. He has YOCASTA. Mucous membranes are dry. Neck: Supple. Trachea midline. No evidence of JVD. Cardiovascular: Regular rate and rhythm. He is without murmur or gallops. Lungs: Clear to auscultation bilaterally. Equal excursion on room air. Abdomen: Soft, nontender. Positive bowel sounds. Genitourinary: Not inspected. Patient has been voiding adequate amount documented. Extremities: Have trace to 1+ lower extremity edema. This continues up into his mid hip back region. Neurological: Alert and oriented x3. ASSESSMENT AND PLAN: 1. Membranous nephropathy with severe nephrotic syndrome. Patient has preserved renal function. BUN and creatinine are stable. Continues with adequate urine output remains on Neoral 150 mg b.i.d., prednisone 50 mg daily with Lasix 20 and omeprazole. He continues on a 2 gram sodium restriction and a 2 L fluid restriction. 2. Hyperlipidemia associated with his membranous nephropathy. Patient was started on Pravachol 10 mg p.o. due to the interaction with his Neoral. We will decrease his Pravachol back to 10 mg p.o. dose and gradually increase this so as not to have a reaction with his Neoral. 3. Electrolytes and acid-base balance. These are acceptable. 4. Anemia. This is in target. 5. Chest pain this has resolved. Followed by cardiology. I would like to thank you for allowing us to follow with this patient. Dictated by MICHAEL Holly for Dominick Holbrook MD Face to face encounter, data reviewed, discussed with Fredo Rees on 09/12/18. I agree with the above assessment and plan of care. cc: MICHAEL Holly MD Jagan Reddy, MD [facility]
--- NOTE | 2018-09-12 16:27 | EKG Report ---
Test Performed on : 09/10/2018 06:58:21 AM Test Reason : chest pain Blood Pressure : / mmHG Vent. Rate : 055 BPM Atrial Rate : 055 BPM P-R Int : 160 ms QRS Dur : 080 ms QT Int : 398 ms P-R-T Axes : 068 060 044 degrees QTc Int : 380 ms Sinus bradycardia. Otherwise normal ECG When compared with ECG of 09-SEP-2018 07:48, (Unconfirmed) No significant change was found Confirmed by Steven Wade MD ([id number]) on 09/12/2018 4:28:06 PM
[2018-09-12] MEDS: PRAVACHOL PO SCH (22:27)
[2018-09-13] MEDS: CARAFATE LIQUID PO SCH ×2 (02:18→09:01)
[2018-09-13] MEDS: LASIX IV SCH (02:18)
[2018-09-13] MEDS: LOVENOX SUBQ SCH (02:18)
--- NOTE | 2018-09-13 06:46 | PROGRESS NOTE ---
DATE: 09/12/2018 SUBJECTIVE: The patient denies of any chest pain. Anxious to go home. REVIEW OF SYSTEMS: None reported. PHYSICAL EXAMINATION: Temperature is 97, pulse 58, vitals are stable. Is and Os were -1.6 L. The swelling of the face has improved. Chest is clear. Heart sounds are regular. Belly is soft, nontender. Decreased peripheral edema. Nonfocal. INVESTIGATIONS: CMP: Sodium 139, potassium 4, BUN 20, creatinine 1.4. LFTs were normal. ASSESSMENT AND PLAN: 1. Membranous nephropathy, on prednisone plus Neoral. 2. Hyperlipidemia. We will change the pravastatin to 40 because of increasing 80 mg of pravastatin will cause some interactions with Neoral and causes more rhabdomyolysis. We will discuss with Dr. Ochoa about using the Repatha. 3. Deep vein thrombosis prophylaxis with Lovenox. 4. Control the blood pressure. 5. Positive troponin, CK-MB, and index. I left a message with Dr. Ochoa about the plan. He does want to do anything since the previous catheterization was negative. The patient currently is asymptomatic. He also has insert loop monitor and patient is anxious to go home. We will discharge him in the morning. LEVEL OF DOCUMENTATION: [25] cc: Fei Nunes MD MTDD
[2018-09-13 07:09] LABS: ALB/GLOB RATIO 1.2; ALBUMIN 2.1 g/dL (3.5-5.0); CALCIUM 7.9 mg/dL (8.8-10.2); CREATININE 1.7 mg/dL (0.7-1.2); POTASSIUM 4.4 mmol/L (3.5-5.1); TOTAL BILIRUBIN 0.18 mg/dL (0.20-1.00); TOTAL PROTEIN 3.8 g/dL (6.3-8.3)
[2018-09-13 08:20] VITALS: BP 198/95
[2018-09-13] MEDS: ISORDIL PO SCH (09:01)
[2018-09-13] MEDS: KLOR-CON PO SCH (09:01)
[2018-09-13] MEDS: PREDNISONE PO SCH (09:01)
[2018-09-13] MEDS: COZAAR PO SCH (09:01)
[2018-09-13] MEDS: ASPIRIN PO SCH (09:01)
[2018-09-13] MEDS: LOPRESSOR PO SCH (09:01)
[2018-09-13] MEDS: APRESOLINE PO SCH (09:02)
[2018-09-13] MEDS: NORVASC PO SCH (09:02)
[2018-09-13] MEDS: NEORAL PO SCH (09:03)
--- NOTE | 2018-09-13 15:08 | NEPHROLOGY PROGRESS NOTE ---
DATE: 09/13/2018 TIME SEEN: 0725. SUBJECTIVE: Mr. Gan is sitting up in bed. He states that he is ready for discharge, waiting on Dr. Nunes. He denies any chest pain or increased work of breathing. States the swelling has improved. LABORATORY DATA: Sodium 141, potassium 4.4, chloride 109, CO2 of 24, BUN 22, creatinine 1.7, glucose is 80, his anion gap is 8, his calcium is 7.9, albumin 2.1. Previous hemoglobin 13.4 on 09/09/2018. PHYSICAL EXAMINATION: Vital Signs: Temperature 98.1 degrees, blood pressure 165/84, heart rate 55, respirations 20. He is on room air. Last recorded saturation 100%. He has had 1200 in. He has had 3500 out to void. General: This is a 47-year-old male. He is currently resting quietly in a chair. He has appearance of no acute distress. Skin: Warm and dry. HEENT: Normocephalic, atraumatic. Conjunctivae pale. He has YOCASTA. Mucous membranes are dry. Neck: Supple. Trachea midline. No JVD. Cardiovascular: Regular rate and rhythm. No murmur or gallop appreciated. Lungs: Clear to auscultation bilaterally. Equal excursion on room air. Abdomen: Soft, round, nontender. Positive bowel sounds. Genitourinary: Not inspected. Adequate urine output to void. Extremities: Trace lower extremity edema. No clubbing or cyanosis. This still continues up into the upper thigh area. Neurologic: Alert and oriented x3. ASSESSMENT AND PLAN: 1. Membranous nephropathy with severe nephrotic syndrome. The patient has preserved renal function with a BUN and creatinine that have remained stable during his hospitalization. He remains on prednisone 50 mg daily, Neoral 150 mg twice daily, Lasix 20, and omeprazole. He continues on a 2-gram sodium restricted diet with 2 liter fluid restriction. 2. Hyperlipidemia associated with his membranous nephropathy. The patient has been started on Pravachol. He was given [address] Holbrook has spoken with Dr. Nunes, with a discussion to send him home on Pravachol 40 mg by mouth dose until seen in our office with labs next week. 3. Electrolytes and acid-base balance. These have been acceptable and stable. We will ask him to have labs drawn next week, including a cyclosporine level before his followup appointment on 09/18/2018. 4. Chest pain. This has resolved. Followed by Cardiology. 5. Follow up in our office on 09-18-2018 with labs. I would like to thank you for allowing us to follow with this patient. Dictated by MICHAEL Holly for Dominick Holbrook MD Data reviewed, discussed with Fredo Rees on 09/13/18. I agree with the above assessment and plan of care. cc: MICHAEL Holly MD Jagan Reddy, MD [facility]
[2018-09-13] MEDS ORDERED: PRAVACHOL PO SCH (21:00)
--- NOTE | 2018-09-15 12:49 | DISCHARGE SUMMARY ---
ADMISSION DATE: 09/09/2018 DISCHARGE DATE: 09/13/2018 DISCHARGING DIAGNOSES: 1. Chest pain, positive cardiac enzymes, prior left heart catheterization was negative in 2016, 2. History of Prinzmetal angina due to history of cocaine abuse in the past. 3. History of nonsustained ventricular tachycardia, on insert loop monitor. 4. Acid reflux disease. 5. Hypertension. 6. Hyperlipidemia. 7. Peripheral artery disease in both legs, bilateral saphenous femoral artery, left is worse than the right side. 8. Generalized anasarca due to membranous nephropathy with nephrotic syndrome, idiopathic. CONSULTS: Dr. Holbrook and Dr. Ochoa. PROCEDURES: IV albumin followed by Lasix. BRIEF HISTORY: Please see the H and P that was done by Dr. Antonio Sterling. In brief he is a 47- year-old male with above problems basically came in with chest pain associated with generalized anasarca. Recently seen by Dr. Holbrook. Started on prednisone and Neoral for membranous nephropathy. He has known existing heart disease due to Prinzmetal angina. HOSPITAL COURSE: For chest pain, it was resolved. EKG was nondiagnostic, however positive CK and troponin. Dr. Ochoa was not concerned about it since the patient is asymptomatic. He thought this is related to noncardiac with acid reflux disease. Significant hyperlipidemia due to underlying nephrosis. Cholesterol 400. Dr. Ochoa started on high-intensity statin drugs with atorvastatin [address] Holbrook concerned that there is interaction between cyclosporine and statin drugs and will increase the risk of rhabdomyolysis. Dr. Holbrook wants to start on pravastatin [address] Holbrook thinks he may need Repatha down the line. For generalized anasarca due to low albumin, the patient was started on IV albumin followed by Lasix. He has excellent diuresis. LABS: CBC: White cell count 12, hematocrit 40, platelet 167,000. Sodium 140, potassium 4.4, chloride 109, BUN 22, creatinine 1.7, glucose is 80. LFTs were normal. Total protein is 3.8, albumin 2.1, and triglycerides 380. Cholesterol 411, LDL 340, HDL 34. The patient is anxious to go home. The patient was given Lovenox for DVT prophylaxis. DISCHARGE INSTRUCTIONS: The patient received pneumococcal vaccine 05/03/2018. Discharge weight is 230 pounds. Fluid restriction, low-salt, isosorbide 20 mg t.i.d., Prilosec 40 daily, prednisone 50 daily, cyclosporine 150 p.o. b.i.d., hydralazine 10 t.i.d., pravastatin 40 daily, Zofran for nausea, losartan 50 p.o. b.i.d., amlodipine 10 daily, Lasix 20 daily, metoprolol 25 daily. I tried to reach Dr. Ochoa about his plans about underlying CAD treatment in terms of the hyperlipidemia, maybe how to initiate PA to get approval for Repatha. The patient is going to see Dr. Holbrook. He needs a work excuse for 2 weeks. cc: MD Navneet Mujica MD Reginald D. Gladish, MD
== END 2018-09-13 09:30 | disposition home or self-care (01) ==
LOC: ED 07:46 → 4N 07:46
PROVIDERS: ADMIT Internal Medicine; ATTEND Internal Medicine
CPT/HCPCS: 71020; 71046; 80053; 80061; 81001; 82550; 82553; 82570; 83721; 83735; 83880; 84100; 84134; 84156; 84484; 85025; 85610; 85730; 93005; 93010; 93306; 96374; 99285; A9270; J1650; J1940; J2270; J2405; J7506; J7512; J7515; P9047; S0028

== ENCOUNTER 2018-11-20 10:42 | Inpatient (IN) ==
[2018-11-20] MEDS ORDERED: HUMALOG SUBQ ONE (11:27)
[2018-11-20] MEDS: ISORDIL PO SCH ×2 (12:23→20:45)
[2018-11-20] MEDS: LOVENOX SUBQ SCH (12:23)
[2018-11-20] MEDS: APRESOLINE PO SCH ×2 (12:23→20:45)
[2018-11-20] MEDS: NS 1,000 ML IV SCH ×2 (12:25→23:06)
[2018-11-20] MEDS: HUMALOG SUBQ SCH ×2 (15:44→20:54)
[2018-11-20] MEDS ORDERED: TYLENOL PO ONE (19:22)
[2018-11-20] MEDS: TRESIBA FLEXTOUCH U-200 SUBQ SCH (20:44)
[2018-11-20] MEDS: COZAAR PO SCH (20:44)
[2018-11-20] MEDS: NEORAL PO SCH (20:46)
[2018-11-21 01:16] LABS: UR CREAT RANDOM 302.8 mg/dL (14-26); UR PROT RANDOM 321.2 mg/dL
[2018-11-21 02:20] LABS: URINE BACTERIA NEGATIVE /HFP; URINE CRYSTAL NONE SEEN /HPF; URINE EPITHELIAL CELLS <10 /HPF (<10); URINE RBC <10 /HPF (<10)
--- NOTE | 2018-11-21 02:22 | HISTORY AND PHYSICAL ---
CHIEF COMPLAINT: Polyuria, polydipsia. HISTORY OF PRESENT ILLNESS: He is a 47-year-old recently diagnosed with membranous nephropathy under treatment by Dr. Holbrook on prednisone and cyclosporin. Recently the patient was started on Repatha, switching from pravastatin because of the cyclosporin toxicity. Today now his blood sugar was 686, hemoglobin A1c 10.7, creatinine 1.53. He was admitted to the stepdown for IV fluids and to control the blood sugar with Regular insulin sliding scale. He was started on Tresiba since he has a chronic kidney disease was unable to use the other drugs, especially the metformin and Jardiance. Currently he is stable. I spoke to Dr. Holbrook as well. PAST MEDICAL HISTORY: Left heart catheterization was negative in 2016. 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 Membranous nephropathy on treatment. Type 2 diabetes, worsening with steroids. Metabolic syndrome. Hypertension. Gynecomastia. Bilateral superficial femoral artery stenoses. Tobacco abuse. PAST SURGICAL HISTORY: He has had a loop monitor, back surgery in August [address] Mcneal. Renal biopsy consistent with membranous nephropathy. MEDICATIONS: Amlodipine 10 daily, pravastatin 40 daily, Cilostazol 50 p.o. b.i.d., Plavix 75 daily, gabapentin 300 once daily, hydralazine 10 mg 3 times daily, losartan 50 b.i.d., metoprolol 25 daily, cyclosporin 150 p.o. b.i.d., prednisone 50 mg daily, Repatha 140 mg/mL subcutaneous twice a month. ALLERGIES: Not known. SOCIAL HISTORY: , living in [place]. No drug abuse now or alcohol abuse. Used to smoke 15-20 years ago. FAMILY HISTORY: Father at the age of 79 with diabetes and heart disease. Mother is 72 years old with CHF and CVA. HEALTH MAINTENANCE: Last digital rectal exam in November 2017. Colonoscopy in [address] Stanley. REVIEW OF SYSTEMS: HEENT: No headache, no vision problems. No headache, no sore throat. Neck: No goiter. No lymphadenopathy. No bruit. Cardiopulmonary: No chest pain, shortness of breath, PND or orthopnea. Gastrointestinal: No nausea, vomiting. Genitourinary: Polyuria, polydipsia. . Extremities: No swelling of feet. Neurological: No focal symptoms or weakness. EXAMINATION: VITAL SIGNS:: Temperature is 98.4 degrees, pulse 69, blood pressure is 150/82. HEENT: Atraumatic, normocephalic. Pupils equal, reactive to light. TMs are normal. Small acne noted on the face. NECK: Supple. No lymphadenopathy. CHEST: Bilateral air entry. HEART: Sounds are regular. ABDOMEN: Belly is soft, obese, nontender. Good bowel sounds. EXTREMITIES: 1+ pedal edema noted. NEUROLOGIC: No obvious neurological deficits noted. INVESTIGATIONS IN MY OFFICE: Sodium 130, anion gap 15, sugar 638, A1c 10.7. CBC is normal. Urinalysis is positive for ketones as well as protein and sugar. ASSESSMENT AND PLAN: A 47-year-old male admitted to the hospital with worsening of diabetes due to steroids with underlying membranous nephropathy. PLAN: 1. IV fluids. Insulin. Tresiba. Will refrain from using metformin and Jardiance. Continue the diet. 2. Hypertension on Norvasc 10 mg daily, hydralazine 10 p.o. t.i.d., isosorbide 20 t.i.d., losartan 50 p.o. t.i.d., metoprolol 75 daily. 3. Acid reflux disease on Omeprazole 40 mg daily. 4. Membranous nephropathy on prednisone 50 mg daily, cyclosporin 150 p.o. b.i.d. 5. Hyperlipidemia on Repatha. 6. High risk for a DVT. Continue on Lovenox. 7. Will check the labs in the morning. 8. Dr. Holbrook consult. 9. Will follow up. cc: Fei Nunes MD MTDD
[2018-11-21 02:47] LABS: URINE CAST GRANULAR PRESENT /LPF; URINE YEAST NONE SEEN /HPF
[2018-11-21 05:59] LABS: HEMATOCRIT 37.4 % (42.0-52.0); HEMOGLOBIN 12.9 g/dL (14.0-18.0); RBC 4.63 XMIL (4.7-6.1)
[2018-11-21 06:00] LABS: BASO# 0.02 X1000 (0.0-0.2); BASO% 0.2 % (0.0-0.8); EOS# 0.11 X1000 (0.0-0.7); EOS% 0.9 % (0.0-10.0); IMM GRAN# 0.08 X1000 (0.0-0.04); IMM GRAN% 0.6 % (0.0-0.5); LYMPH# 4.67 X1000 (1.2-3.4); LYMPH% 36.5 % (20.5-51.1); MCH 27.9 PG (27-31); MCHC 34.5 g/dL (33-37); MCV 80.8 FL (81-99); MONO# 0.78 X1000 (0.11-0.59); MONO% 6.1 % (1.7-9.3); NEUT# 7.14 X1000 (1.4-6.5); NEUT% 55.7 % (42.2-75.2); PLT 168 X1000 (130-400); RDW 13.7 % (11.5-14.5)
[2018-11-21] MEDS: HUMALOG SUBQ SCH ×4 (06:09→20:54)
[2018-11-21 06:43] LABS: AGAP 10; ALB/GLOB RATIO 0.6; ALKALINE PHOSPHATASE 60 U/L (32-122); AMYLASE 60 U/L (20-200); BUN 18 mg/dL (8-22); CALCIUM 7.9 mg/dL (8.8-10.2); CHLORIDE 103 mmol/L (98-107); COSMO 281; ESTIMATED GFR > 60; GLUCOSE 169 mg/dL (70-104); GOT 12 U/L (10-34); GPT 24 U/L (10-44); POTASSIUM 3.8 mmol/L (3.5-5.1); SODIUM 138 mmol/L (136-145); TCO2 25 mmol/L (25-35); TOTAL BILIRUBIN 0.21 mg/dL (0.20-1.00); TOTAL PROTEIN 5.1 g/dL (6.3-8.3)
[2018-11-21] MEDS ORDERED: MAG-OX PO ONE (08:07)
[2018-11-21] MEDS ORDERED: KLOR-CON PO ONE (08:07)
[2018-11-21] MEDS ORDERED: NS 1,000 ML IV SCH (08:15)
[2018-11-21 08:57] LABS: PROTEIN CREAT RATIO 1.1
[2018-11-21] MEDS ORDERED: PREDNISONE PO SCH ×2 (09:00)
[2018-11-21] MEDS: APRESOLINE PO SCH ×3 (09:06→20:50)
[2018-11-21] MEDS: COZAAR PO SCH ×2 (09:06→20:50)
[2018-11-21] MEDS: PRILOSEC PO SCH (09:07)
[2018-11-21] MEDS: LOPRESSOR PO SCH (09:07)
[2018-11-21] MEDS: ISORDIL PO SCH ×3 (09:07→20:50)
[2018-11-21] MEDS: NORVASC PO SCH (09:07)
[2018-11-21] MEDS: NEORAL PO SCH ×2 (10:01→20:52)
--- NOTE | 2018-11-21 12:45 | NEPHROLOGY CONSULTATION ---
DATE: 11/21/2018 REASON FOR CONSULTATION: Assistance with management. HISTORY OF PRESENT ILLNESS: Mr. Gan is a 47-year-old man who is well known to me. He has membranous nephropathy and is receiving cyclosporin and prednisone currently. His last visit in our office had a urine albumin to creatinine ratio of 6590 on 09/03. He saw Dr. Nunes in the office complaining of increased thirst, polydipsia and polyuria. At that time, his glucose was over 600 so he was admitted to the hospital for management. He has been on 60 mg of prednisone daily in an attempt to manage his nephrotic syndrome. He is also receiving cyclosporin 150 mg twice daily. Blood pressure treatment as well. He has not previously been diabetic. PAST MEDICAL HISTORY: As above. HOME MEDICATIONS: Include metoprolol, omeprazole, amlodipine, losartan, hydralazine, cyclosporin, prednisone, isosorbide, cilostazol, and clopidogrel. ALLERGIES: None. SOCIAL HISTORY: He works full-time driving a fork truck. . FAMILY HISTORY: Negative. REVIEW OF SYSTEMS: He relates a 30 pounds weight loss with marked improvement in his lower extremity swelling. OBJECTIVE: Vital Signs: Blood pressure 171/89, heart rate 69, respirations 20, and afebrile. Generally: No acute distress. Skin: Warm and dry. Conjunctivae are pink. Neck: Neck veins are not distended. Heart: Regular. No gallops. Lungs: Equal. No crackles. Abdomen: Soft and nontender. Bowel sounds present. Extremities: Trace to 1+ edema. No clubbing or cyanosis. IMPRESSION: Membranous nephropathy with nephrotic syndrome. Reported protein creatinine ratio is incorrect. Correct ratio would be 1.07. This certainly is a significant improvement from his outpatient data. I believe it is acceptable to begin to wean his prednisone, but we will do this slowly in order to minimize risk for a relapse of his nephrotic syndrome. This would be adjudicated as partial response. We will change his prednisone to 40 mg, and I would recommend staying at the 40 mg dose until his visit with us in early January approximately 6 weeks from now. cc: MD Fei Escudero MD MTDD
[2018-11-21] MEDS: LOVENOX SUBQ SCH (15:39)
[2018-11-21] MEDS: TRESIBA FLEXTOUCH U-200 SUBQ SCH (20:55)
--- NOTE | 2018-11-21 23:10 | PROGRESS NOTE ---
DATE: 11/21/2018 SUBJECTIVE: The patient is doing better. I spoke to Dr. Holbrook. Blood sugars are running from the prednisone. Complains of leg cramps. OBJECTIVE: Vital signs: Temperature is 98 degrees, pulse 59, blood pressure 168/96. HEENT: Within normal limits. Neck: Supple. Chest: Clear. Heart: Sounds are regular. Abdomen: Belly is soft, nontender. Extremities: Trace pedal edema. LABS: CBC: White cell count 12.8, hematocrit 37.4, platelet 168,000. Sodium 138, potassium 3.8, chloride 103, BUN 18, creatinine 1.0. Glucose 169, total protein 5.1, albumin 2.0. Urine protein/creatinine ratio 1.1. ASSESSMENT AND PLAN: 1. Hyperglycemia due to uncontrolled diabetes. A1c 10.7. Started on Tresiba 25 units at bedtime. 2. Chronic kidney disease. Creatinine is 1.0. 3. Replace the potassium and magnesium, and decrease the IV fluids. 4. Membranous nephropathy, on cyclosporine 150 p.o. b.i.d. Decreasing the prednisone 40 mg daily. 5. Hypertension is well controlled. Status post insert loop monitor. 6. Deep venous thrombosis prophylaxis. 7. Hyperlipidemia. Continue on Repatha. 8. If he continues to improve we will discharge in the morning. LEVEL OF DOCUMENTATION: [address] Holbrook's consult. cc: Fei Nunes MD
[2018-11-22 04:44] VITALS: BP 164/96
[2018-11-22 06:11] LABS: BASO# 0.01 X1000 (0.0-0.2); BASO% 0.1 % (0.0-0.8); EOS# 0.09 X1000 (0.0-0.7); EOS% 0.9 % (0.0-10.0); HEMATOCRIT 37.7 % (42.0-52.0); HEMOGLOBIN 12.8 g/dL (14.0-18.0); IMM GRAN# 0.02 X1000 (0.0-0.04); IMM GRAN% 0.2 % (0.0-0.5); LYMPH# 3.27 X1000 (1.2-3.4); LYMPH% 33.6 % (20.5-51.1); MCH 27.8 PG (27-31); MCV 81.8 FL (81-99); MONO# 0.69 X1000 (0.11-0.59); MONO% 7.1 % (1.7-9.3); MPV 12.6 FL (7.4-10.4); NEUT# 5.64 X1000 (1.4-6.5); NEUT% 58.1 % (42.2-75.2); PLT 162 X1000 (130-400); RBC 4.61 XMIL (4.7-6.1); WBC 9.72 X1000 (4.8-10.8)
[2018-11-22] MEDS: HUMALOG SUBQ SCH (06:20)
[2018-11-22] MEDS ORDERED: INSULIN PEN NEEDLES ONE (06:26)
[2018-11-22 06:37] LABS: AGAP 10; BUN 17 mg/dL (8-22); CALCIUM 7.7 mg/dL (8.8-10.2); CHLORIDE 106 mmol/L (98-107); COSMO 285; CREATININE 1.1 mg/dL (0.7-1.2); ESTIMATED GFR > 60; GLUCOSE 206 mg/dL (70-104); POTASSIUM 3.5 mmol/L (3.5-5.1); SODIUM 139 mmol/L (136-145); TCO2 23 mmol/L (25-35)
[2018-11-22] MEDS: LOPRESSOR PO SCH (08:31)
[2018-11-22] MEDS: PRILOSEC PO SCH (08:31)
[2018-11-22] MEDS: NORVASC PO SCH (08:32)
[2018-11-22] MEDS: ISORDIL PO SCH (08:32)
[2018-11-22] MEDS: APRESOLINE PO SCH (08:32)
[2018-11-22] MEDS: NEORAL PO SCH (08:32)
[2018-11-22] MEDS ORDERED: PREDNISONE PO SCH (09:00)
[2018-11-22] MEDS: COZAAR PO SCH (09:44)
--- NOTE | 2018-11-22 13:34 | NEPHROLOGY PROGRESS NOTE ---
DATE: 11/22/2018 DATE AND TIME SEEN: 11/22/2018 at 06:40. SUBJECTIVE: Mr. Gan is resting quietly in bed. States that he is feeling well. Feels like his swelling has improved and he is ready to go home. OBJECTIVE: VITAL SIGNS: Temperature 98.8 degrees, blood pressure 164/96, heart rate 72, respirations are 11. He is on room air, last recorded saturation 99%. He has had 0 recorded in though he states that he is eating and drinking. He has had 1150 out to void. LABORATORY DATA: His sodium is 139, potassium 3.5, chloride 106, CO2 23, BUN 17, creatinine 1.1, glucose 206. His anion gap is 10. His calcium is 7.7. White count 9.72, hemoglobin 12.8, hematocrit 37.7 with a platelet count of 162,000. PHYSICAL EXAMINATION: General: This is a 47-year-old male, resting quietly in bed. He appears in no acute distress. Skin: Warm and dry. HEENT: Normocephalic, atraumatic. Conjunctiva is pale. He has YOCASTA. Mucous membranes are dry. Neck: Supple. Trachea midline. No evidence of JVD. Cardiovascular: Regular rate and rhythm. He has an S4 present. Lungs: Clear to auscultation bilaterally. Equal excursion on room air. Abdomen: Soft, nontender. Positive bowel sounds. Genitourinary: Not inspected. Adequate void documented. Extremities: Have trace edema. No clubbing or cyanosis. Neurological: Alert and oriented x3. ASSESSMENT AND PLAN: 1. Membranous nephropathy with nephrotic syndrome. Patient's reported creatinine ratio is 1.07. He has been treated with prednisone on an outpatient basis. We have decreased his prednisone to 40 mg daily at this time with followup in January in our office. 2. Electrolytes and acid-base balance. These are acceptable. 3. Anemia. This is stable. 4. Hypertension. This is followed by the primary care. The patient remains on amlodipine, hydralazine, isosorbide, losartan, metoprolol. Would like to thank you for allowing us to follow with this patient. Dictated by MICHAEL Holly for Dominick Holbrook MD [id number] encounter, data reviewed, discussed with Meredith Rees on 11/22/18. I agree with the above assessment and plan of care. cc: MICHAEL Holly MD Jagan Reddy, MD MTDD
== END 2018-11-22 09:46 | disposition home or self-care (01) | DRG 638 ==
LOC: DIRADM 10:42 → 2N 11:06
PROVIDERS: ADMIT Internal Medicine; ATTEND Internal Medicine